=== PATIENT | female | born 1980 | race Hispanic/Latino ===

== ENCOUNTER 2024-08-29 07:20 | Day surgery (SDC) | payer OTHER ==
[~2024-08-29] VITALS: Ht 160 cm; Wt 124.3 kg
[2024-08-29] VITALS (9 sets, daily range): BP systolic 98–133; BP diastolic 53–86; PULSE 78–92; RESP 15–21; TEMP 97–97.5
[2024-08-29] MEDS ORDERED: CHOL125C6 PO (10:06)
[2024-08-29] MEDS ORDERED: LURA40TA2 PO (10:06)
[2024-08-29] MEDS ORDERED: OMEP-420 PO (10:06)
[2024-08-29] MEDS ORDERED: QUET200T30 PO (10:06)
[2024-08-29] MEDS ORDERED: LISI10TA24 PO (10:06)
[2024-08-29] MEDS ORDERED: MAG GLYCINATE PO (10:06)
[2024-08-29] MEDS ORDERED: ROSUVASTATIN PO (10:06)
[2024-08-29] MEDS: 0.9%NACL 1000ML 1,000 ML IV ONE (10:37)
[2024-08-29] MEDS ORDERED: proPOFol 10 MG/ML 20ML VIAL IV ONE ×3 (10:58→11:23)
--- NOTE | 2024-08-29 12:48 | NUR ---
Patient aox4. Denies c/o pain or discomfort. Voiced understanding to GI procedure precautions and follow up expectations. Ambulated to bathroom and Voided large amount of clear urine. PIV discontinued with catheter tip intact. Full and complete Discharge instructions given to Patient and Family. All questions answered. W/C to POV with Family to Home. Call your doctor if: Severe pain not easily relieved. Fever greater than 101 F. Difficulty breathing. Excessive dizziness. Rash breaks out. Excessive nausea or vomiting. Any other medical problems of your concern.
== END 2024-08-29 12:40 | disposition home or self-care (01) ==
LOC: ENDO 07:20 → DAH 07:24 → ENDO 12:40
PROVIDERS: ATTEND Internal Medicine
DX: R19.4 Change in bowel habit (principal); R13.10 Dysphagia, unspecified; K29.50 Unspecified chronic gastritis without bleeding; K31.7 Polyp of stomach and duodenum; R12 Heartburn; I10 Essential (primary) hypertension; E78.9 Disorder of lipoprotein metabolism, unspecified; E78.00 Pure hypercholesterolemia, unspecified; E66.01 Morbid (severe) obesity due to excess calories; Z68.42 Body mass index [BMI] 45.0-49.9, adult; F41.9 Anxiety disorder, unspecified; Z79.899 Other long term (current) drug therapy
CPT/HCPCS: 43251; 43239; 81025; 43248; 45378; J7030; J2704 ×3; A4620; A4649; A4215 ×2; A4223; A4222; A4221; A4663; A4606; J3490

== ENCOUNTER → 2025-01-03 | Outpatient (CLI) | payer OTHER ==
[~2025-01-03] MED LIST: CHOL125C6 PO; LISI10TA24 PO; LURA40TA2 PO; MAG GLYCINATE PO; OMEP-420 PO; QUET200T30 PO; ROSUVASTATIN PO
--- NOTE | 2025-01-03 17:52 | HMCIMG ---
NM GASTRIC EMPTYING STUDY REASON: epigastric pain. COMPARISON: None TECHNIQUE: Gastric emptying study was performed with 1.5 mCi of technetium sulfa colloid with scrambled eggs through oral route. FINDINGS: T half of gastric emptying is 61 minutes. IMPRESSION: Normal gastric emptying with T half of 61 minutes.
== END | disposition home or self-care (01) ==
LOC: RAH 11:17
PROVIDERS: ATTEND Internal Medicine
DX: R14.0 Abdominal distension (gaseous) (principal); R10.13 Epigastric pain; R11.0 Nausea; R14.2 Eructation
CPT/HCPCS: 78264; A9541

== ENCOUNTER → 2025-05-06 | Outpatient (CLI) | payer OTHER ==
[~2025-05-06] MED LIST changes: +IOHEXOL 350 MG/ML 100ML INFUS..BTL IV ONE
--- NOTE | 2025-05-07 10:30 | HMCIMG ---
EXAM: CT Abdomen and Pelvis with IV contrast CLINICAL HISTORY: EPIGASTRIC PAIN TECHNIQUE: Axial computed tomography images of the abdomen and pelvis with intravenous contrast. CONTRAST: With intravenous contrast. COMPARISON: None provided. FINDINGS: LUNG BASES: The lung bases appear clear. No pleural effusions are seen. LIVER: Unremarkable. GALLBLADDER AND BILE DUCTS: The gallbladder appears within normal limits. No radioopaque gallstones are seen. No biliary ductal dilatation is evident. PANCREAS: Unremarkable. SPLEEN: Unremarkable. ADRENAL GLANDS: Unremarkable. KIDNEYS, URETERS, AND BLADDER: The kidneys appear within normal limits. There is no hydronephrosis or hydroureter. No urinary calculi are seen. The urinary bladder is partially distended. STOMACH AND BOWEL: Mild colonic diverticulosis along the sigmoid colon. No evidence suggesting acute diverticulitis, enteritis, or colitis. Unremarkable appearance of the stomach and bowel. No evidence of bowel obstruction. APPENDIX: The appendix is not visible. There are no secondary signs of acute appendicitis PERITONEUM: No free fluid. No free air. LYMPH NODES: No lymphadenopathy is evident. REPRODUCTIVE: Intrauterine contraceptive device in situ. No adnexal mass. Cervix is mildly bulky, clinical correlation suggested VASCULATURE: No evidence of abdominal aortic aneurysm. BONES: No aggressively appearing osseous lesion. No acute osseous pathology is evident. Mild multilevel degenerative changes in the visualized spine. IMPRESSION: 1. No acute intraabdominal or pelvic pathology. /[place]
== END | disposition home or self-care (01) ==
LOC: RAH 09:21
PROVIDERS: ATTEND Internal Medicine
DX: K57.30 Diverticulosis of large intestine without perforation or abscess without bleeding (principal); R10.13 Epigastric pain; M47.817 Spondylosis without myelopathy or radiculopathy, lumbosacral region; Z97.5 Presence of (intrauterine) contraceptive device
CPT/HCPCS: 74177; Q9967

== ENCOUNTER 2025-07-02 08:00 | Inpatient (IN) | payer OTHER ==
[~2025-07-02] VITALS: Ht 160 cm; Wt 111.1 kg
[2025-07-10 09:11] LABS: IMMATURE GRANULOCYTE ABSOLUTE 0.03 K/uL (0-1); NUCLEATED RED BLOOD CELLS 0.0 % (0.0-0.19); PLATELET COUNT (AUTO) 248 K/uL (130-400); RED BLOOD CELL COUNT(AUTO) 4.66 MIL/uL (4.00-5.50); RED CELL DISTRIBUTION WIDTH 13.5 % (11.0-15.5); WHITE BLOOD COUNT (AUTO) 7.3 K/uL (4.8-10.8)
[2025-07-10 09:12] VITALS: BP 145/94; PULSE 76; RESP 18; TEMP 97.9
[2025-07-10 09:21] LABS: INR 1.08 (0.85-1.15)
[2025-07-10 09:30] LABS: ASPARTATE AMINOTRANSFERASE 14.0 U/L (10-37); CREATININE 0.7 mg/dL (0.5-1.0); GLOMERULAR FILTR. RATE CALC 109.0 mL/min (>90); GLUCOSE,RANDOM 96.0 mg/dL (70-105); SODIUM SERUM 141.0 mmol/L (136-145); TOTAL PROTEIN, SERUM 8.3 g/dL (6.0-8.3); UREA NITROGEN, BLOOD 16.0 mg/dL (7-18)
[2025-07-10] MEDS ORDERED: MAGNESIUM SALICYLATE PO (11:13)
[2025-07-10] MEDS ORDERED: ROSU10TA98 PO (11:13)
[2025-07-10] MEDS ORDERED: ESZO3TAB39 PO (11:13)
[2025-07-10] MEDS ORDERED: PHEN37.599 PO (11:13)
[2025-07-10] MEDS ORDERED: DICY-20 PO (11:13)
[2025-07-10] MEDS ORDERED: ONDA-104 PO (11:13)
[2025-07-10] MEDS ORDERED: BIOTIN PO (11:13)
[2025-07-10] MEDS ORDERED: FLUO40CA49 PO (11:13)
[2025-07-10] MEDS ORDERED: OLME40TA18 PO (11:13)
[2025-07-10] MEDS ORDERED: OMEP40CA21 PO (11:13)
[2025-07-10] MEDS ORDERED: ESZO3TAB65 PO (11:13)
--- NOTE | 2025-07-10 14:02 | EKG ---
[facility] Test Date: 2025-07-10 Test Time: 08:56:06 Pat Name: DALI VERONICA Department: Patient ID: [facility] [id number] Room: 329 Gender: F Consumer Credit Counselor: [id number] : 1980 Requested By: SHARI GIFFORD Order Number: [id number] Reading MD: Kaushal Britt Measurements Intervals [place] Rate: 74 P: 33 KS: 160 QRS: 25 QRSD: 91 T: 2 QT: 391 QTc: 436 Interpretive Statements Sinus rhythm Low voltage, precordial leads No previous ECG available for comparison Electronically Signed On 07-11-2025 17:45:08 CDT by Kaushal Britt Please click the below link to view image of tracing.
[2025-07-11] VITALS (27 sets, daily range): BP systolic 126–162; BP diastolic 68–95; PULSE 69–88; RESP 15–21; TEMP 97–97.7; O2SAT 98
[2025-07-11] MEDS ORDERED: PROMETHAZINE HCL 25 MG/ML 1ML AMPULE IM PRN (07:00)
[2025-07-11] MEDS ORDERED: MIDAZOLAM HCL 1 MG/ML 2ML VIAL ONE (13:02)
[2025-07-11] MEDS ORDERED: LIDOCAINE HCL MPF 1% 5ML VIAL ONE (13:02)
[2025-07-11] MEDS ORDERED: GLYCOPYRROLATE 0.2 MG/ML 5 ML VIAL ONE (14:01)
--- NOTE | 2025-07-11 14:58 | PN ---
GENERAL SURGERY PROGRESS NOTE Date/Time Patient Seen: [07/11/2025 at 3:00 p.m. ] Problem List: [ ] Interval History: [Postop day 0. Pain tolerable with p.r.n. medication. ] Physical Examination: GENERAL: [No acute distress.] ABD: [Incisions clean, dry and intact, Dermabond in place Laboratory: [ ] Hematology Labs: Test 07/10/25 08:50 Range/Units White Blood Count 7.3 4.8-10.8 K/uL Red Blood Count 4.66 4.00-5.50 MIL/uL Hemoglobin 13.1 12.0-16.0 g/dL Hematocrit 40.2 36-48 % Mean Corpuscular Volume 86.3 79-99 fL Mean Corpuscular Hemoglobin 28.1 27.0-33.0 pg Mean Corpuscular Hemoglobin Concent 32.6 32.0-36.0 g/dL Red Cell Distribution Width 13.5 11.0-15.5 % Platelet Count 248 130-400 K/uL Mean Platelet Volume 10.0 7.5-10.5 fL Immature Granulocyte % (Auto) 0.4 0-1 % Neutrophils (%) (Auto) 65.4 40.0-77.0 % Lymphocytes (%) (Auto) 26.6 21.0-51.0 % Monocytes (%) (Auto) 5.4 3.0-13.0 % Eosinophils (%) (Auto) 1.8 0.0-8.0 % Basophils (%) (Auto) 0.4 0.0-5.0 % Neutrophils # (Auto) 4.8 1.8-7.7 K/uL Lymphocytes # (Auto) 2.0 1.0-4.8 K/uL Monocytes # (Auto) 0.4 0.1-1.0 K/uL Eosinophils # (Auto) 0.13 0.00-0.70 K/uL Basophils # (Auto) 0.03 0.00-0.20 K/uL Absolute Immature Granulocyte (auto 0.03 0-1 K/uL Nucleated Red Blood Cells 0.0 0.0-0.19 % Chemistry Labs: Test 07/10/25 08:50 Range/Units Sodium Level 141 136-145 mmol/L Potassium Level 3.9 3.5-5.1 mmol/L Chloride Level 102 101-111 mmol/L Carbon Dioxide Level 31 21-32 mmol/L Blood Urea Nitrogen 16 7-18 mg/dL Creatinine 0.7 0.5-1.0 mg/dL Glomerular Filtration Rate Calc 109 >90 mL/min Random Glucose 96 70-105 mg/dL Total Calcium 9.6 8.5-10.1 mg/dL Total Bilirubin 0.3 0.2-1.0 mg/dL Aspartate Amino Transf (AST/SGOT) 14 10-37 U/L Alanine Aminotransferase (ALT/SGPT) 30 12-78 U/L Alkaline Phosphatase 110 50-136 U/L Total Protein 8.3 6.0-8.3 g/dL Albumin 4.0 3.5-5.0 g/dL Coagulation Labs: Test 07/10/25 08:50 Range/Units Prothrombin Time 11.4 9.6-11.6 SEC Prothromb Time International Ratio 1.08 0.85-1.15 Activated Partial Thromboplast Time 26.5 26.3-35.5 SEC Diagnostics / Radiology: [Copy/Paste Echos/Imaging Report here] Impression and Plan: [Plan is for discharge home in the next day or two as long as patient tolerating p.o., ambulatory and pain under control. Discussed with the patient and family. They understand and agree. ] JILLIAN PETERS PAC Jul 11, 2025 14:57
[2025-07-11] MEDS: LACTATED RINGERS 1000ML 1,000 ML IV SCH (15:00)
--- NOTE | 2025-07-11 15:01 | OP ---
Operative Note: DATE OF PROCEDURE: 07/11/25 SURGEON: XOCHITL PETERS MD [facility] WORK[employer] SEWING: William Peters MD PA-C ANESTHESIA: General and Local ANESTHESIOLOGIST/APPLICATION RELEASE MANA[place] [facility] [place] PREOPERATIVE DIAGNOSIS: Morbid obesity and associated comorbid conditions POSTOPERATIVE DIAGNOSIS: As above. SYNOPSIS: Robotic assisted sleeve gastrectomy with intraoperative EGD performed without immediate complication PROCEDURE: 1. Robotic assisted sleeve gastrectomy 2. Omentopexy to reinforce cut edge of sleeve 3. EGD ESTIMATED BLOOD LOSS: min, <30cc INDICATIONS: as above DESCRIPTION OF PROCEDURE: After standard precautions and preparations were undertaken a veress needle and optical trocar were used to enter the abdominal cavity. All other instruments were placed under direct vision. The robotic system was docked in the standard fashion. We began by mobilizing the greater curve using a biplar dissecting device. Care was taken to preserve the blood supply to the antrum. Dissection was taken to the level of the angle of His. My partner passed the 40fr bougie in to the stomach for decompression and proper sizing during the stapling portion of the case. A linear stapler, with staple line reinforcement, was used to initiate stapling. Care was taken to avoid overtightening the incisura, avoid causing any twisting or turning in the body of the stomach, and to avoid stapling too close to the GE junction. When stapling was complete the bougie was removed and my partner passed the EGD scope down while I remained at the robotic console to suture the nearby omentum to the cut edge of the stomach. When this was complete a formal leak test was undertaken which did not demonstrate any leak or problem. The staple line was intact and the mucosa was well perfused. The EGD scope was removed without incident. The partial gastrectomy was removed from our lateral trocar site. The fascia was closed to prevent future hernia. All instrument counts were verified as correct prior to ending the case. XOCHITL PETERS MD Jul 11, 2025 15:01
--- NOTE | 2025-07-11 16:25 | NUR ---
ARRIVAL ON 3RD PATIENT ARRIVED TO 3RD FLOOR. PATIENT FAMILY AT BEDSIDE. NO QUESTIONS AT THIS TIME. FAMILY WAS ORIENTED TO THE ROOM AT THIS TIME. PATIENT STUPOROUS DUE TO ANESTHESIA. NO DISTRESS NOTED AT THIS TIME.
[2025-07-11] MEDS: SUGAMMADEX SODIUM 200 MG/2 ML VIAL IV ONE (16:58)
[2025-07-11] MEDS: LACTATED RINGERS 1000ML 1,000 ML IV ONE (16:58)
[2025-07-11] MEDS: INDOCYANINE GREEN 25 MG VIAL IJ ONE (16:58)
[2025-07-11] MEDS: ENOXAPARIN SODIUM 40 MG/0.4 ML SYRINGE SQ SCH (17:34)
[2025-07-11] MEDS: PROCHLORPERAZINE 10MG/2ML INJ IV PRN (20:00)
[2025-07-11] MEDS: FAMOTIDINE 20MG VIAL IV SCH (20:00)
[2025-07-11] MEDS: HYDROcod/acetaMINOPHEN 7.5/325 MG 15 ML UDCUP PO PRN (23:06)
[2025-07-12] VITALS (7 sets, daily range): BP systolic 118–150; BP diastolic 68–87; PULSE 64–93; RESP 12–18; TEMP 97.6–98.5; O2SAT 96
--- NOTE | 2025-07-12 03:00 | NUR ---
PATIENT AMBULATING FULL SQUARE 400 FEET WITH NO PROBLEM
--- NOTE | 2025-07-12 09:57 | PN ---
GENERAL SURGERY PROGRESS NOTE Date/Time Patient Seen: [ ] Problem List: [ 79, dysphagia, chronic gastritis, hypertension, anxiety, obstructive sleep apnea] Interval History: [ 44-year-old female patient with past medical history for dysphagia, hypertension, anxiety, obstructive sleep apnea, chronic gastritis, and morbid obesity who underwent a robotic assisted sleeve gastrectomy with intraoperative EGD, and omentopexy to reinforce cut edge of sleeve. Patient remains hemodynamically stable. Patient has tolerated clear fluids. ] Current Medications Medications (Trade) Dose Ordered Sig/Rosita Route Start Time Stop Time Status Last Admin Dose Admin Enoxaparin Sodium (Lovenox) 40 mg Q12H SQ 07/11/25 15:00 08/10/25 14:59 07/12/25 02:39 40 MG Famotidine (Pepcid 20mg Vial) 20 mg BID IV 07/11/25 21:00 08/10/25 20:59 07/12/25 08:17 20 MG Lactated Ringer's 1,000 ml @ 150 mls/hr Q6H40M IV 07/11/25 15:00 08/10/25 14:59 07/12/25 04:20 150 MLS/HR Physical Examination: GEN: Awake, alert, oriented in person, time and place, and in no acute distress. HEENT: No rhinorrhea. Oral pharyngeal mucosa is pink, moist and within normal limits. CHEST: Lung auscultation revealed normal breath sounds bilaterally. CARDIAC:Heart sounds are regular. ABD: Soft, non-tender and not distended. No peritoneal signs on palpation. Normal bowel sounds. Last bm EXT: No cyanosis or clubbing. No edema. SKIN: Intact. No rashes. NEURO: Alert and oriented to name, place and person.No focal motor deficits. Normal speech. Vital Signs (last 8hr) Date Time Temp Pulse Resp B/P (MAP) Pulse Ox O2 Delivery O2 Flow Rate FiO2 07/12/25 08:25 Room Air* 0 21 07/12/25 08:00 98.1 74 18 143/79 98 Room Air 07/12/25 04:00 97.9 93 16 125/75 70 Room Air Laboratory: [ ] Diagnostics / Radiology: [Copy/Paste Echos/Imaging Report here] Impression and Plan: [Morbid obesity Hypertension Dysphagia Chronic gastritis Anxiety Obstructive sleep apnea Plan Encourage ambulation Encourage IS exercises Pain meds as needed Antiemetics p.r.n. Plan for disposition in the next 24 hours Please call with questions, concerns, and change in clinical status. FRANNIE POPE Jul 12, 2025 09:57
--- NOTE | 2025-07-12 10:52 | NUR ---
DCP:HOME Pt currently lives at home with her sister and Andrew Vega [phone]. Pt does not report using any DME, home health, or provider services. Pt states that she is able to complete ADLs independently. PCP is Dr. Reynaldo Person and uses [facility] for any RX needs. At NH pt will want to go home and family can assist with transportation. Addendum: 07/12/25 at 1059 by JOSIANE PADGETT SS Amended: Links added.
--- NOTE | 2025-07-12 13:16 | NUR ---
Nutrition consult per bariatric Reviewed labs, notes, and medications. Pt on CLD phase 1, sedated per chart review. Pt reported 100% PO, belching, denied N/V today, poor appetite , has MVI patches, has been walking around, had RD visits prior to procedure, receives vit b12 shots often, sees PCP every 6 months. present during visit. RD reviewed educational material for post-op diet recommendations. Pt was informed of importance of lifelong vitamin/mineral supplementation, choosing protein first during meals (pt was educated on higher protein requirements), choosing low calorie, sugar free, carbonated free and caffeine beverages. RD also informed pt on lifelong commitment to exercise and dietary recommendations for optimal success post surgery. RD encouraged getting blood work every 3 to 6 months, including B-vitamins, Pt verbalized understanding. RD informed Pt on moving around after procedure to prevent DVT, Pt verbalized understanding. Pt was encouraged to contact RD as questions arise and to attend support groups. Fair compliance suspected. Pt will benefit from outpatient bariatric dietitian follow up post procedure. Pt to follow up with PCP for labs. Recommendations: -Continue phase 1 bariatric diet for 1 week -Provide chewable MVI QD when medically feasible -Monitor electrolytes -Monitor diet tolerance -Monitor BM -Monitor wts -Monitor PO intake -Recommend Pt to follow up with PCP -Monitor goals of care RD available for consult per protocol Addendum: 07/12/25 at [address] Amended: Links added.
[2025-07-13] VITALS: BP 108/46; PULSE 79; RESP 20; TEMP 97.9
[2025-07-13 04:18] VITALS: BP 144/80; PULSE 61; RESP 20; TEMP 97.6
[2025-07-13 08:00] VITALS: BP 109/57; PULSE 68; RESP 20; TEMP 98
[2025-07-13 12:00] VITALS: BP 121/73; PULSE 73; RESP 20; TEMP 97.8
--- NOTE | 2025-07-13 12:22 | DS ---
Discharge Summary Hospital Course Patient is a 44-year-old female who was admitted from the outpatient setting for elective robotic assisted laparoscopic vertical sleeve gastrectomy on 07/11/2025 for morbid obesity and associated comorbidities with Dr. Tacos Ramirez. Now postop day two. Patient ambulating in the hallway, tolerating clear liquid diet, pain well controlled. She remains hemodynamically stable, afebrile. Normal sinus rhythm, aerating well on room air. Abdomen is benign, incisions clean dry and intact. Appropriately tender to palpation. No rebound or guarding. Patient meeting discharge criteria. She will continue to avoid lifting more than 20 lb for a month. Continue on clear liquids and transition to full liquids at home. Postop follow up and postop medications already in place Return precautions given including fevers of 101.5 or higher, worsening abdominal pain, intractable nausea or vomiting Patient agrees SHARI GIFFORD MD Jul 13, 2025 12:22
[2025-07-13] MEDS ORDERED: ONDA-243 PO (12:23)
[2025-07-13 15:48] VITALS: O2SAT 95
== END 2025-07-13 15:10 | disposition home or self-care (01) | DRG 621 ==
LOC: DAHIP 07-11 05:29 → 3AH 07-11 16:25
PROVIDERS: ADMIT Surgery; ATTEND Surgery
PROC: 8E0W4CZ Robotic Assisted Procedure of Trunk Region, Percutaneous Endoscopic Approach (ICD-10-PCS; 2025-07-11)
PROC: 0DJ08ZZ Inspection of Upper Intestinal Tract, Via Natural or Artificial Opening Endoscopic (ICD-10-PCS; 2025-07-11)
PROC: 0DB64Z3 Excision of Stomach, Percutaneous Endoscopic Approach, Vertical (ICD-10-PCS; principal; 2025-07-11 13:56)
DX: E66.01 Morbid (severe) obesity due to excess calories (principal); F41.9 Anxiety disorder, unspecified; I10 Essential (primary) hypertension; K29.50 Unspecified chronic gastritis without bleeding; G47.33 Obstructive sleep apnea (adult) (pediatric); Z68.41 Body mass index [BMI] 40.0-44.9, adult
CPT/HCPCS: 36415; 43235; 80053; 85025; 85610; 85730; 86850; 86900; 86901; 93005; G0378; J0780; J1100; J1171; J1650; J1885; J2250; J2405; J2704; J3010; J3490; J7120; A4213; A4215; A4216; A4221; A4222; A4223; A4663; A4930; A6260; C1769; J0690; J1308